=== PATIENT | female | born 1945 | race Asian ===

== ENCOUNTER 2018-03-11 01:39 | Emergency (ER) | payer OTHER ==
[~2018-03-11] VITALS: Ht 142.2 cm; Wt 93.2 kg
[~2018-03-11 01:39] MED LIST: ACET-66 PO; AMLO5TAB66 PO; ATOR20TA65 PO; CALC200T42 PO; CHOL500062 PO; CIPR250S4 PO; DENO60DI SQ; DIPH25CA85 PO; FURO20 PO; LORA10TA7 PO; LOSA50TA26 PO; MECL-129 PO; OMEG-70 PO; PIOG45TA4 PO; POTA-9 PO; RANI150C4 PO; SITA50 PO; VITA-328 PO
[2018-03-11] MEDS ORDERED: OS500 PO (02:24)
[2018-03-11] MEDS ORDERED: ATEN50TA PO (02:24)
[2018-03-11] MEDS ORDERED: SITA100 PO (02:24)
[2018-03-11] MEDS ORDERED: AMLO-511 PO (02:24)
[2018-03-11] MEDS ORDERED: BUME1TAB17 PO (02:24)
[2018-03-11] MEDS ORDERED: LOSA50TA25 PO (02:24)
[2018-03-11 06:18] VITALS: BP 116/69
== END 2018-03-11 07:19 | disposition home or self-care (01) ==
LOC: EMS 01:40
DX: R13.10 Dysphagia, unspecified (principal); E11.9 Type 2 diabetes mellitus without complications; K21.9 Gastro-esophageal reflux disease without esophagitis; E78.00 Pure hypercholesterolemia, unspecified; I10 Essential (primary) hypertension; Z88.0 Allergy status to penicillin; Z88.6 Allergy status to analgesic agent; Z88.8 Allergy status to other drugs, medicaments and biological substances; Z91.013 Allergy to seafood; Z79.84 Long term (current) use of oral hypoglycemic drugs; Z79.899 Other long term (current) drug therapy
CPT/HCPCS: 70360

== ENCOUNTER 2020-11-28 16:30 | Emergency (ER) | payer OTHER ==
[~2020-11-28] VITALS: Ht 152.4 cm; Wt 86.4 kg
[~2020-11-28 16:30] MED LIST changes: -ACET-66 PO; +AMLO-257 PO; -AMLO5TAB66 PO; +ATEN-72 PO; +BUME1TAB34 PO; -CIPR250S4 PO; -DIPH25CA85 PO; -FURO20 PO; -LORA10TA7 PO; -LOSA50TA26 PO; +LOSA50TA37 PO; +OS500 PO; -PIOG45TA4 PO; -POTA-9 PO; -RANI150C4 PO; +SITA100 PO; -SITA50 PO; -VITA-328 PO
[2020-11-28] MEDS ORDERED: LIDOCAINE 5% TRANSDERMAL PATCH TD ONE (17:45)
[2020-11-28] MEDS ORDERED: ACETAMINOPHEN 325 MG TABLET PO ONE (17:45)
[2020-11-28 19:08] VITALS: BP 123/56
== END 2020-11-28 19:52 | disposition home or self-care (01) ==
LOC: EDUNIT# 16:30 → EMS 16:30
DX: M13.811 Other specified arthritis, right shoulder (principal); E11.9 Type 2 diabetes mellitus without complications; K21.9 Gastro-esophageal reflux disease without esophagitis; E78.00 Pure hypercholesterolemia, unspecified; I10 Essential (primary) hypertension; Z88.0 Allergy status to penicillin; Z88.6 Allergy status to analgesic agent; Z88.8 Allergy status to other drugs, medicaments and biological substances
CPT/HCPCS: 99283